=== PATIENT | female | born 1965 | race African-American/Black ===

== ENCOUNTER 2022-07-14 07:19 | Emergency (ER) | payer OTHER, BC ==
[~2022-07-14] VITALS: Ht 162.6 cm; Wt 78.2 kg
[2022-07-14 08:00] VITALS: BP 150/76
[2022-07-14] MEDS ORDERED: ACETAMINOPHEN 500 MG TAB PO ONE (08:00)
[2022-07-14] MEDS ORDERED: KETOROLAC TROMETH 60MG/2ML VIAL IM ONE (08:15)
[2022-07-14] MEDS ORDERED: METH500T22 PO (08:47)
[2022-07-14] MEDS ORDERED: ACET-1080 PO (08:47)
== END 2022-07-14 08:53 | disposition home or self-care (01) ==
LOC: ER 07:23
DX: S39.012A Strain of muscle, fascia and tendon of lower back, initial encounter (principal); M25.512 Pain in left shoulder; V43.52XA Car driver injured in collision with other type car in traffic accident, initial encounter; Y93.89 Activity, other specified; Y92.410 Unspecified street and highway as the place of occurrence of the external cause; Y99.8 Other external cause status
CPT/HCPCS: 72100; 96372; 99283; J1885